=== PATIENT | male | born 1955 | race American Indian/Alaskan Native ===

== ENCOUNTER 2016-08-30 22:15 | Emergency (ER) | payer MEDICARE ==
[2016-08-30] MEDS ORDERED: NACL 0.9% 1000 ML 1,000 ML IV ONE (23:29)
[2016-08-30 23:45] LABS: Hematocrit 45.2 % (35.5-45.6); Hemoglobin 14.9 gm/dl (11.8-15.2); Mean Corpuscular HGB Conc 33 % (32-34); Mean Corpuscular Hemoglobin 29 pg (28-32); Mean Corpuscular Volume 88 fl (84-94); Platelet Count 244 K/mm3 (140-440); Red Blood Count 5.16 M/mm3 (3.65-5.03); White Blood Count 10.1 K/mm3 (4.5-11.0)
[2016-08-31 00:02] LABS: INR 1.02 (0.87-1.13)
[2016-08-31 00:06] LABS: Blood Urea Nitrogen 27 mg/dL (9-20); Calcium 9.6 mg/dL (8.4-10.2); Carbon Dioxide 26 mmol/L (22-30); Glucose 93 mg/dL (75-100); Potassium 4.3 mmol/L (3.6-5.0); Sodium 141 mmol/L (137-145)
[2016-08-31 00:07] LABS: Anion Gap 18 mmol/L
[2016-08-31 00:08] LABS: Creatine Kinase MB 2.4 ng/mL (0.0-4.0)
[2016-08-31 00:09] LABS: Creatine Kinase 188 units/L (55-170)
[2016-08-31 01:07] LABS: Urine Drugs of Abuse Note Disclamer
[2016-08-31] MEDS ORDERED: ZOFRAN IV ONE (01:15)
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
[2016-08-31 03:00] VITALS: BP 143/92
== END 2016-08-31 04:27 | disposition home or self-care (01) ==
LOC: ED 22:15
DX: R00.0 Tachycardia, unspecified (principal); F14.90 Cocaine use, unspecified, uncomplicated; I10 Essential (primary) hypertension; F17.200 Nicotine dependence, unspecified, uncomplicated
CPT/HCPCS: 36415; 80048; 80307; 82550; 82553; 84439; 84443; 84484; 85027; 85610; 93005; 93010; 96361; 96374; 99284; G0480; J2405; J7030; 80320